=== PATIENT | female | born 1970 | race Caucasian/White ===

== ENCOUNTER 2018-03-04 23:12 | Emergency (ER) | payer OTHER ==
[~2018-03-04] VITALS: Ht 167.6 cm; Wt 130.6 kg
[~2018-03-04 23:12] MED LIST: ACETAMINOPHEN-1 EAC1 PO; CELEBREX 200 M200 M1 PO; DOXYCYCLINE 10100 MG PO; FLEXERIL PO; HYDROCODONE-AP1 EAC6 PO; MAGIC MOUTHWASH PO; PENICILLIN V P500 MG PO; ROBAXIN500 MG PO; SYNTHROID175 MCG PO; VENTOLIN HFA 1818 GM INH
[2018-03-04] MEDS ORDERED: FLEXERIL PO (23:35)
[2018-03-05 00:23] LABS: URINE BILIRUBIN NEGATIVE (Negative); URINE BLOOD 3+ (Negative); URINE CLARITY CLEAR; URINE COLOR YELLOW; URINE GLUCOSE-RANDOM NEGATIVE (Negative); URINE KETONES NEGATIVE (Negative); URINE LEUKOCYTES-REFLEX NEGATIVE (Negative); URINE NITRITE-REFLEX NEGATIVE (Negative); URINE PROTEIN NEGATIVE (Negative); URINE SPECIFIC GRAVITY >= 1.030 (1.005-1.030); URINE UROBILINOGEN 0.2 E.U./dl (0.2-1.0)
[2018-03-05 00:51] LABS: SQUAMOUS >10 Many /LPF (0-3)
[2018-03-05 00:52] LABS: CASTS None Seen /LPF (None Seen); URINE WBC-REFLEX None Seen /HPF (0-5)
[2018-03-05 00:53] LABS: CRYSTALS None Seen /LPF (None Seen)
[2018-03-05] MEDS ORDERED: FLAGYL500 MG PO (02:11)
[2018-03-05] MEDS ORDERED: PHENERGAN 25 MG25 M1 PO (02:11)
[2018-03-05] MEDS ORDERED: CIPROFLOXACIN500 M1 PO (02:11)
[2018-03-05 02:25] VITALS: BP 127/75
== END 2018-03-05 02:26 | disposition home or self-care (01) ==
LOC: M.ERS 23:12
PROVIDERS: Nurse Practitioner Family
DX: K52.9 Noninfective gastroenteritis and colitis, unspecified (principal); N39.0 Urinary tract infection, site not specified; J45.909 Unspecified asthma, uncomplicated